=== PATIENT | male | born 1950 | race Caucasian/White ===

== ENCOUNTER → 2017-12-21 | Outpatient (CLI) | payer MEDICARE, OTHER ==
--- NOTE | 2017-12-21 10:43 | RADRPT ---
EXAM DATE/TIME: 12/21/2017 00:00 [place] COMPARISON: No previous studies available for comparison. INDICATIONS : Dyspahgia. Patient complains of drainage in the morning, and he feels like food is getting stuck in u pper throat. FLUORO TIME: 1.4 minutes IMAGE COUNT: 0 CONTRAST: Dose as prescribed by speech pathologist. MEDICAL HISTORY : None. SURGICAL HISTORY : None. ENCOUNTER: Initial ACUITY: 3 weeks PAIN SCORE: 0/10 LOCATION: Esophagus. FINDINGS: A modified barium swallow was performed with speech pathology. Patient was given a variety of liquids to swallow. No episodes of laryngeal penetration or aspiration observed. There is some pooling of contrast in th e vallecula prior to several swallows. For a full detailed report, see report by the speech pathologist. CONCLUSION: No episodes of aspiration or laryngeal penetration observed. Gio Velazquez MD on December 21, 2017 at 10:41 Board Certified Radiologist. This report was verified electronically.
== END ==
LOC: HRAD 09:38
PROVIDERS: ATTEND Specialist
DX: R13.10 Dysphagia, unspecified (principal)
CPT/HCPCS: 74230; 92611; G8996; G8997; G8998